=== PATIENT | female | born 1960 | race Caucasian/White ===

== ENCOUNTER 2017-02-15 02:59 | Emergency (ER) | payer BC ==
--- NOTE | 2017-02-15 03:03 | EDM.PDOC ---
ED HPI GENERAL MEDICAL PROBLEM - General Stated Complaint: CHEST PAINS Time Seen by Provider: 02/15/17 03:02 Source of Information: Reports: Patient - History of Present Illness INITIAL COMMENTS - FREE TEXT/NARRATIVE: HISTORY AND PHYSICAL: History of present illness: []Patient presents with chest pain she rates 2 out of 10 since 9:00 this evening , she had went to bed awakening approximately 20 minutes prior to arrival again with right-sided chest pain 2 out of 10 nonradiating no association with arm neck or jaw no associated shortness of breath or diaphoresis breathing is nonlabored she is in no distress whatsoever. Oxygen casually speaks easily. Pain is worsened by deep inspiration as well as cough, she notes that many people at her workplace have cold symptoms at current. Denies chronic illness or disease no hypertension or diabetes denies smoking alcohol or illicit No fever nausea vomiting chills sweats no shortness breath headache dizziness or palpitation no bowel or urine symptoms she denies previous cold symptoms although she does admit to a cough over the last several days which is slight, dry and nonproductive Review of systems: As per history of present illness and below otherwise all systems reviewed and negative. Past medical history: As per history of present illness and as reviewed below otherwise noncontributory. Surgical history: As per history of present illness and as reviewed below otherwise noncontributory. Social history: No reported history of drug or alcohol abuse. Family history: As per history of present illness and as reviewed below otherwise noncontributory. Physical exam: HEENT: Atraumatic, normocephalic, pupils reactive, negative for conjunctival pallor or scleral icterus, mucous membranes moist, throat clear, neck supple, nontender, trachea midline. Lungs: Clear to auscultation, breath sounds equal bilaterally, symmetrical expansion Reproduce tenderness along right sternal border and lower rib margins with palpation Heart: S1S2, regular, negative for clicks, rubs, or JVD. Abdomen: Soft, nondistended, nontender. Negative for masses or hepatosplenomegaly. Negative for costovertebral tenderness. Pelvis: Stable nontender. Genitourinary: Deferred. Rectal: Deferred. Extremities: Atraumatic, negative for cords or calf pain. Neurovascular unremarkable. Neuro: Awake, alert, oriented. Cranial nerves II through XII unremarkable. Cerebellum unremarkable. Motor and sensory unremarkable throughout. Exam nonfocal. Diagnostics: []Lab as below EKG Chest 1 view Therapeutics: []Aspirin held due to history of asthma and less likely/low probability of cardiac cause for pain given clinical presentation [id number] symptomatic therapies Follow-up with primary care in 2 weeks sooner as needed Impression: []Costochondritis Definitive disposition and diagnosis as appropriate pending reevaluation and review of above. Chest Pain Score (Numeric/FACES): 4 - Related Data Allergies Allergy/AdvReac Type Severity Reaction Status Date / Time prednisone Allergy Swelling Verified 02/15/17 03:08 Home Meds: Home Meds Acyclovir 400 mg PO BID 02/15/17 [History] Cholecalciferol (Vitamin D3) [D3 Dots] 1,000 unit PO DAILY 02/15/17 [History] Estrogen,Con/M-Progest Acet [Prempro 0.3 MG-1.5 MG] 1 tab PO DAILY 02/15/17 [ History] Folic Acid 400 mcg PO DAILY 02/15/17 [History] Levothyroxine [Synthroid] 100 mcg PO DAILY 02/15/17 [History] Methadone 10 mg PO QID 02/15/17 [History] Morphine 30 mg RECTAL Q6H PRN 02/15/17 [History] Omeprazole 20 mg PO BIDAC 02/15/17 [History] ED ROS GENERAL - Review of Systems Review Of Systems: ROS reveals no pertinent complaints other than HPI. ED EXAM, GENERAL - Physical Exam Exam: See Below Course - Vital Signs Last Recorded V/S: Last Vital Signs Temp 36.4 C 02/15/17 03:03 Pulse 74 02/15/17 03:19 Resp 18 02/15/17 03:19 BP 127/81 02/15/17 03:19 Pulse Ox 95 02/15/17 03:19 - Orders/Labs/Meds Orders: Active Orders 24 hr Category Date Time Status EKG Documentation Completion [RC] STAT Care 02/15/17 03:01 Active Chest 1V Frontal [CR] Stat Exams 02/15/17 03:01 Taken Labs: Laboratory Tests 02/15/17 02/15/17 02/15/17 Range/Units 03:10 03:10 03:10 WBC 10.24 (4.0-11.0) K/uL RBC 4.83 (4.30-5.90) M/uL Hgb 14.4 (12.0-16.0) g/dL Hct 43.0 (36.0-46.0) % MCV 89.0 (80.0-98.0) fL MCH 29.8 (27.0-32.0) pg MCHC 33.5 (31.0-37.0) g/dL RDW Std Deviation 43.1 (28.0-62.0) fl RDW Coeff of Alesha 13 (11.0-15.0) % Plt Count 238 (150-400) K/uL MPV 8.90 (7.40-12.00) fL Neut % (Auto) 55.1 (48.0-80.0) % Lymph % (Auto) 34.3 (16.0-40.0) % Harris % (Auto) 7.0 (0.0-15.0) % Eos % (Auto) 3.2 (0.0-7.0) % Baso % (Auto) 0.4 (0.0-1.5) % Neut # (Auto) 5.6 (1.4-5.7) K/uL Lymph # (Auto) 3.5 H (0.6-2.4) K/uL Harris # (Auto) 0.7 (0.0-0.8) K/uL Eos # (Auto) 0.3 (0.0-0.7) K/uL Baso # (Auto) 0.0 (0.0-0.1) K/uL Nucleated RBC % 0.0 /100WBC Nucleated RBCs # 0 K/uL INR (0.86-1.11) Sodium 139 (136-146) mmol/L Potassium 4.5 (3.5-5.1) mmol/L Chloride 104 (98-110) mmol/L Carbon Dioxide 27 (21-31) mmol/L BUN 17 (6.0-23.0) mg/dL Creatinine 0.9 (0.6-1.5) mg/dL Est Cr Clr Drug Dosing 60.27 mL/min Estimated GFR (MDRD) > 60.0 ml/min Glucose 83 (60-110) mg/dL Calcium 9.4 (8.8-10.8) mg/dL Total Bilirubin 0.3 (0.1-1.5) mg/dL AST 19 (5-40) IU/L ALT 18 (8-54) IU/L Alkaline Phosphatase 79 (40-150) Troponin I < 0.10 (0.0-0.29) NG/ML Total Protein 7.1 (6.0-8.0) g/dL Albumin 4.1 (3.5-5.0) g/dL Globulin 3.0 (2.0-3.5) g/dL Albumin/Globulin Ratio 1.4 (1.3-2.8) Amylase (10-90) U/L Lipase (7-80) U/L Urine Color Urine Appearance Urine pH (5.0-8.0) Ur Specific [place] (1.001-1.035) Urine Protein (NEGATIVE) mg/dL Urine Glucose (UA) (NEGATIVE) mg/dL Urine Ketones (NEGATIVE) mg/dL Urine Occult Blood (NEGATIVE) Urine Nitrite (NEGATIVE) Urine Bilirubin (NEGATIVE) Urine Urobilinogen (<2.0) EU/dL Ur Leukocyte Esterase (NEGATIVE) Urine RBC (0-2/HPF) Urine WBC (0-5/HPF) Ur Epithelial Cells (NONE-FEW) Urine Bacteria (NEGATIVE) 02/15/17 02/15/17 02/15/17 Range/Units 03:10 03:10 03:25 WBC (4.0-11.0) K/uL RBC (4.30-5.90) M/uL Hgb (12.0-16.0) g/dL Hct (36.0-46.0) % MCV (80.0-98.0) fL MCH (27.0-32.0) pg MCHC (31.0-37.0) g/dL RDW Std Deviation (28.0-62.0) fl RDW Coeff of Alesha (11.0-15.0) % Plt Count (150-400) K/uL MPV (7.40-12.00) fL Neut % (Auto) (48.0-80.0) % Lymph % (Auto) (16.0-40.0) % Harris % (Auto) (0.0-15.0) % Eos % (Auto) (0.0-7.0) % Baso % (Auto) (0.0-1.5) % Neut # (Auto) (1.4-5.7) K/uL Lymph # (Auto) (0.6-2.4) K/uL Harris # (Auto) (0.0-0.8) K/uL Eos # (Auto) (0.0-0.7) K/uL Baso # (Auto) (0.0-0.1) K/uL Nucleated RBC % /100WBC Nucleated RBCs # K/uL INR 1.00 (0.86-1.11) Sodium (136-146) mmol/L Potassium (3.5-5.1) mmol/L Chloride (98-110) mmol/L Carbon Dioxide (21-31) mmol/L BUN (6.0-23.0) mg/dL Creatinine (0.6-1.5) mg/dL Est Cr Clr Drug Dosing mL/min Estimated GFR (MDRD) ml/min Glucose (60-110) mg/dL Calcium (8.8-10.8) mg/dL Total Bilirubin (0.1-1.5) mg/dL AST (5-40) IU/L ALT (8-54) IU/L Alkaline Phosphatase (40-150) Troponin I (0.0-0.29) NG/ML Total Protein (6.0-8.0) g/dL Albumin (3.5-5.0) g/dL Globulin (2.0-3.5) g/dL Albumin/Globulin Ratio (1.3-2.8) Amylase 48 (10-90) U/L Lipase 12 (7-80) U/L Urine Color YELLOW Urine Appearance CLEAR Urine pH 5.5 (5.0-8.0) Ur Specific [place] 1.025 (1.001-1.035) Urine Protein NEGATIVE (NEGATIVE) mg/dL Urine Glucose (UA) NEGATIVE (NEGATIVE) mg/dL Urine Ketones NEGATIVE (NEGATIVE) mg/dL Urine Occult Blood TRACE-INTACT (NEGATIVE) Urine Nitrite NEGATIVE (NEGATIVE) Urine Bilirubin NEGATIVE (NEGATIVE) Urine Urobilinogen 0.2 (<2.0) EU/dL Ur Leukocyte Esterase NEGATIVE (NEGATIVE) Urine RBC 0-2 (0-2/HPF) Urine WBC NONE SEEN (0-5/HPF) Ur Epithelial Cells FEW (NONE-FEW) Urine Bacteria FEW (NEGATIVE) Departure - Departure Time of Disposition: 03:48 Disposition: Home, Self-Care 01 Condition: Good Clinical Impression: Costochondritis - Discharge Information Referrals: PCP,None [Primary Care Provider] - Additional Instructions: Ibuprofen 400 mg 3 times daily 7-10 days Tylenol may be be used in place of ibuprofen at 650 mg every 6 hours 10 days Return if symptoms persist or worsen or new concerning symptoms develop [id number] symptomatic therapy as discussed Follow-up with primary care in 2 weeks sooner as needed The following information is given to patients seen in the emergency department who are being discharged to home. This information is to outline your options for follow-up care. We provide all patients seen in our emergency department with a follow-up referral. The need for follow-up, as well as the timing and circumstances, are variable depending upon the specifics of your emergency department visit. If you don't have a primary care physician on staff, we will provide you with a referral. We always advise you to contact your personal physician following an emergency department visit to inform them of the circumstance of the visit and for follow-up with them and/or the need for any referrals to a consulting specialist. The emergency department will also refer you to a specialist when appropriate. This referral assures that you have the opportunity for follow-up care with a specialist. All of these measure are taken in an effort to provide you with optimal care, which includes your follow-up. Under all circumstances we always encourage you to contact your private physician who remains a resource for coordinating your care. When calling for follow-up care, please make the office aware that this follow-up is from your recent emergency room visit. If for any reason you are refused follow-up, please contact the [facility] emergency department at and asked to speak to the emergency department charge nurse. - My Orders Last 24 Hours: My Active Orders 02/15/17 03:01 EKG Documentation Completion [RC] STAT Chest 1V Frontal [CR] Stat - Assessment/Plan Last 24 Hours: My Active Orders 02/15/17 03:01 EKG Documentation Completion [RC] STAT Chest 1V Frontal [CR] Stat
[2017-02-15 03:32] LABS: CHLORIDE,CL 104 mmol/L (98-110); SODIUM,NA 139 mmol/L (136-146)
[2017-02-15 04:06] VITALS: BP 123/74
--- NOTE | 2017-02-15 10:33 | CR ---
EXAM DATE: 02/15/17 PATIENT'S AGE: 56 Patient: EHSAN ALFARO Facility: [place], [place] Site . Site : [id number] Study: XRay Chest [id number]/26/2017 3:23:09 AM Ordering Physician: Doctor Gutiérrez Final Report: INDICATION: CHEST PAIN TECHNIQUE: Chest 1 view COMPARISON: None FINDINGS: Cardiovascular and mediastinum: Heart size and vasculature are normal in caliber and appearance. Mediastinum is within normal limits. Lungs and pleural space: No focal consolidation. No sign of pleural effusion. No pneumothorax. Bones and soft tissues: No significant findings. IMPRESSION: No acute cardiopulmonary disease. Dictated by J Luis Martin MD @ 02/15/2017 3:28:41 AM Dictated by: J Luis Martin MD @ 02/15/2017 03:28:48 (Electronic Signature) Report Signed by Proxy. [email or web address]
== END 2017-02-15 04:00 | disposition home or self-care (01) ==
LOC: MW.ED 02:59
DX: M94.0 Chondrocostal junction syndrome [Tietze] (principal); Z79.899 Other long term (current) drug therapy; Z88.8 Allergy status to other drugs, medicaments and biological substances
CPT/HCPCS: 71010; 71010-26; 80053; 81001; 82150; 83690; 84484; 85025; 85610; 93005; 99283; 99285-25

== ENCOUNTER 2019-12-30 20:47 | Observation (INO) | payer BC ==
[2019-12-30] MEDS ORDERED: Sodium Chloride 0.9% 1,000 ML IV ONE (21:13)
[2019-12-30] MEDS ORDERED: Ondansetron 4 MG/2 ML SDV IVPUSH ONE ×2 (21:13→23:05)
[2019-12-30] MEDS ORDERED: Morphine 4 MG/ML Syringe IVPUSH ONE ×3 (21:13→23:05)
--- NOTE | 2019-12-30 21:17 | EDM.PDOC ---
ED HPI GENERAL MEDICAL PROBLEM - General Chief Complaint: Abdominal Pain Stated Complaint: UPPER ABDOMINAL PAIN Time Seen by Provider: 12/30/19 20:52 Source of Information: Reports: Patient History Limitations: Reports: No Limitations - History of Present Illness INITIAL COMMENTS - FREE TEXT/NARRATIVE: 59F presents for RUQP since roughly 2PM today. Ate urdu fries prior to pain. Pain started suddenly and is constant. Radiates to back. Associated with nausea but no vomiting. No fevers. No urinary symptoms. No PSHx other than tubal ligation. Compazine OIL FIELD TESTER w/ minimal relief. No h/o similar mid upper and R abd pain Pain Score (Numeric/FACES): 7 - Related Data Allergies Allergy/AdvReac Type Severity Reaction Status Date / Time cefuroxime [From Ceftin] Allergy Airway Verified 12/30/19 21:01 Tightness cephalexin [From Keflex] Allergy Airway Verified 12/30/19 21:01 Tightness prednisone Allergy Swelling Verified 02/15/17 03:08 Home Meds: Home Meds Acyclovir 400 mg PO BID 02/15/17 [History] Cholecalciferol (Vitamin D3) [D3 Dots] 1,000 unit PO DAILY 02/15/17 [History] Folic Acid 400 mcg PO DAILY 02/15/17 [History] Levothyroxine [Synthroid] 100 mcg PO DAILY 02/15/17 [History] Morphine 30 mg RECTAL Q6H PRN 02/15/17 [History] Omeprazole 20 mg PO BIDAC 02/15/17 [History] Past Medical History HEENT History: Reports: None Respiratory History: Reports: Asthma Genitourinary History: Reports: None [employer] History: Reports: Ectopic Musculoskeletal History: Reports: None Neurological History: Reports: Headaches, Chronic Endocrine/Metabolic History: Reports: Hypothyroidism - Infectious Disease History Infectious Disease History: Reports: Chicken Pox - Past Surgical History HEENT Surgical History: Reports: Tonsillectomy Respiratory Surgical History: Reports: None Female Surgical History: Reports: Tubal Ligation Musculoskeletal Surgical History: Reports: Carpal Tunnel Other Musculoskeletal Surgeries/Procedures:: multiple back surgeries Social & Family History - Family History Family Medical History: Noncontributory - Tobacco Use Smoking Status *Q: Former Smoker Used Tobacco, but Quit: Yes Month/Year Tobacco Last Used: 09/2019 - Caffeine Use Caffeine Use: Reports: Coffee Caffeine Use Comment: 1cup/day - Recreational Drug Use Recreational Drug Use: No ED ROS GENERAL - Review of Systems Review Of Systems: Comprehensive ROS is negative, except as noted in HPI. ED EXAM, GI/ABD - Physical Exam Exam: See Below Exam Limited By: No Limitations General Appearance: Alert, WD/WN, No Apparent Distress Head: Atraumatic, Normocephalic Respiratory/Chest: No Respiratory Distress, Lungs Clear, Normal Breath Sounds, No Accessory Muscle Use Cardiovascular: Normal Peripheral Pulses, Regular Rate, Rhythm GI/Abdominal Exam: Soft, No Distention, Other (RUQ TTP) Extremities: Normal Inspection Neurological: Alert, Oriented Psychiatric: Normal Affect, Normal Mood Skin Exam: Warm, Dry Course - Vital Signs Last Recorded V/S: Last Vital Signs Temp 96.3 F L 12/30/19 20:56 Pulse 64 12/30/19 20:56 Resp 18 12/30/19 20:56 BP 204/92 H 12/30/19 20:56 Pulse Ox 96 12/30/19 20:56 - Orders/Labs/Meds Orders: Active Orders 24 hr Category Date Time Status EKG 12 Lead [EKG Documentation Completion] [RC] STAT Care 12/31/19 00:32 Active Dicyclomine [Bentyl] Med 12/31/19 00:32 Once 10 mg PO ONETIME ONE Ketorolac [Toradol] Med 12/31/19 00:32 Once 15 mg IVPUSH ONETIME ONE Sucralfate [Carafate] Med 12/31/19 23:43 Once 1 gm PO ONETIME ONE Medication Orders Sucralfate (Carafate) 1 gm PO ONETIME ONE Stop: 12/31/19 23:44 Labs: Laboratory Tests 12/30/19 12/30/19 12/30/19 Range/Units 21:30 21:30 23:00 WBC 10.37 (4.0-11.0) K/uL RBC 4.90 (4.30-5.90) M/uL Hgb 14.2 (12.0-16.0) g/dL Hct 41.5 (36.0-46.0) % MCV 84.7 (80.0-98.0) fL MCH 29.0 (27.0-32.0) pg MCHC 34.2 (31.0-37.0) g/dL RDW Std Deviation 37.2 (28.0-62.0) fl RDW Coeff of Alesha 12 (11.0-15.0) % Plt Count 281 (150-400) K/uL MPV 8.60 (7.40-12.00) fL Neut % (Auto) 59.2 (48.0-80.0) % Lymph % (Auto) 31.9 (16.0-40.0) % [place] % (Auto) 6.1 (0.0-15.0) % Eos % (Auto) 2.1 (0.0-7.0) % Baso % (Auto) 0.7 (0.0-1.5) % Neut # (Auto) 6.1 H (1.4-5.7) K/uL Lymph # (Auto) 3.3 H (0.6-2.4) K/uL [place] # (Auto) 0.6 (0.0-0.8) K/uL Eos # (Auto) 0.2 (0.0-0.7) K/uL Baso # (Auto) 0.1 (0.0-0.1) K/uL Sodium 140 (136-145) mmol/L Potassium 4.0 (3.5-5.1) mmol/L Chloride 102 (98-107) mmol/L Carbon Dioxide 31.0 (21.0-32.0) mmol/L BUN 9 (7.0-18.0) mg/dL Creatinine 0.9 (0.6-1.0) mg/dL Est Cr Clr Drug Dosing 55.68 mL/min Estimated GFR (MDRD) > 60.0 ml/min Glucose 95 (74-106) mg/dL Calcium 8.4 L (8.5-10.1) mg/dL Magnesium 2.0 (1.8-2.4) mg/dL Total Bilirubin 0.3 (0.2-1.0) mg/dL AST 15 (15-37) IU/L ALT 21 (14-63) IU/L Alkaline Phosphatase 102 (46-116) U/L Troponin I < 0.050 (0.000-0.056) ng/mL Total Protein 7.4 (6.4-8.2) g/dL Albumin 4.2 (3.4-5.0) g/dL Globulin 3.2 (2.6-4.0) g/dL Albumin/Globulin Ratio 1.3 (0.9-1.6) Lipase 46 L (73-393) U/L Urine Color YELLOW Urine Appearance SLT CLOUDY Urine pH 5.5 (5.0-8.0) Ur Specific [place] 1.025 (1.001-1.035) Urine Protein NEGATIVE (NEGATIVE) mg/dL Urine Glucose (UA) NEGATIVE (NEGATIVE) mg/dL Urine Ketones NEGATIVE (NEGATIVE) mg/dL Urine Occult Blood MODERATE H (NEGATIVE) Urine Nitrite NEGATIVE (NEGATIVE) Urine Bilirubin NEGATIVE (NEGATIVE) Urine Urobilinogen 0.2 (<2.0) EU/dL Ur Leukocyte Esterase NEGATIVE (NEGATIVE) Urine RBC 2-5 (0-2/HPF) Urine WBC 0-1 (0-5/HPF) Ur Epithelial Cells RARE (NONE-FEW) Urine Bacteria RARE (NEGATIVE) Meds: Medications Generic Name Dose Route Start Last Admin Trade Name Freq PRN Reason Stop Dose Admin Sucralfate 1 gm 12/31/19 23:43 Carafate PO 12/31/19 23:44 ONETIME ONE Discontinued Medications Generic Name Dose Route Start Last Admin Trade Name Freq PRN Reason Stop Dose Admin Al Hydroxide/Mg Hydroxide 15 0 ml 12/30/19 23:43 12/31/19 00:11 ml/ Lidocaine HCl 5 ml PO 12/30/19 23:44 1 each ONETIME ONE Administration Sodium Chloride 1,000 mls @ 999 mls/hr 12/30/19 21:13 12/30/19 21:44 Normal Saline IV 12/30/19 22:13 999 mls/hr .Bolus ONE Administration Metoclopramide HCl 10 mg 12/30/19 22:37 12/30/19 22:54 Reglan IVPUSH 12/30/19 22:38 10 mg ONETIME ONE Administration Morphine Sulfate 4 mg 12/30/19 21:13 12/30/19 21:44 Morphine IVPUSH 12/30/19 21:14 4 mg ONETIME ONE Administration Morphine Sulfate 4 mg 12/30/19 22:37 12/30/19 22:54 Morphine IVPUSH 12/30/19 22:38 4 mg ONETIME ONE Administration Morphine Sulfate 4 mg 12/30/19 23:05 12/30/19 23:20 Morphine IVPUSH 12/30/19 23:06 4 mg ONETIME ONE Administration Ondansetron HCl 4 mg 12/30/19 21:13 12/30/19 21:45 Zofran IVPUSH 12/30/19 21:14 4 mg ONETIME ONE Administration Ondansetron HCl 4 mg 12/30/19 23:05 12/30/19 23:20 Zofran IVPUSH 12/30/19 23:06 4 mg ONETIME ONE Administration - Re-Assessments/Exams Free Text/Narrative Re-Assessment/Exam: 12/30/19 21:16 Will get labs, CT imaging, and treat symptomatically while working up Free Text/Narrative Re-Assessment/Exam: 12/31/19 00:32 Pain difficult to control. 3x morphine 4mg without relief. GI cocktail, carafate not helpful. CT unremarkable. Bedside POCUS w/ some biliary sludge but no gallstones identified, CBD measuring 4mm. Spoke with Dr. Salguero who agrees to admit to med/surg obs pending EKG Departure - Departure Time of Disposition: 00:33 Disposition: Refer to Observation Condition: Good, Fair Clinical Impression: Abdominal pain Qualifiers: Abdominal location: right upper quadrant Qualified Code(s): R10.11 - Right upper quadrant pain - Discharge Information Referrals: PCP,Not In Area [Primary Care Provider] - Forms: ED Department Discharge Sepsis Event Note (ED) - Evaluation Sepsis Screening Result: No Definite Risk - Focused Exam Vital Signs: Vital Signs Temp Pulse Resp BP Pulse Ox 12/30/19 20:56 96.3 F L 64 18 204/92 H 96 - My Orders Last 24 Hours: My Active Orders 12/31/19 00:32 EKG 12 Lead [EKG Documentation Completion] [RC] STAT Dicyclomine [Bentyl] 10 mg PO ONETIME ONE Ketorolac [Toradol] 15 mg IVPUSH ONETIME ONE 12/31/19 23:43 Sucralfate [Carafate] 1 gm PO ONETIME ONE - Assessment/Plan Last 24 Hours: My Active Orders 12/31/19 00:32 EKG 12 Lead [EKG Documentation Completion] [RC] STAT Dicyclomine [Bentyl] 10 mg PO ONETIME ONE Ketorolac [Toradol] 15 mg IVPUSH ONETIME ONE 12/31/19 23:43 Sucralfate [Carafate] 1 gm PO ONETIME ONE
[2019-12-30 22:04] LABS: BLOOD UREA NITROGEN,BUN 9 mg/dL (7.0-18.0); CHLORIDE,CL 102 mmol/L (98-107); GLUCOSE RANDOM 95 mg/dL (74-106); LIPASE 46 U/L (73-393); SODIUM,NA 140 mmol/L (136-145)
[2019-12-30] MEDS ORDERED: Metoclopramide 10 MG/2 ML SDV IVPUSH ONE (22:37)
--- NOTE | 2019-12-30 23:21 | CT ---
INDICATION: Right upper quadrant pain. COMPARISON: None available TECHNIQUE: CT examination of the abdomen and pelvis was performed with the uneventful intravenous administration of 100 cc of Isovue 370 while 3 mm thick axial sections were obtained from the lung bases through the pubic symphysis. Oral contrast was not administered. Please note that all CT scans at this facility use dose modulation, iterative reconstruction, and/or weight-based dosing when appropriate to reduce radiation dose to as low as reasonably achievable. FINDINGS: In the abdomen, the liver, spleen, pancreas, and adrenals are normal in appearance. There is a 7 millimeter cyst in the upper pole of the left kidney. The kidneys are otherwise normal in appearance. The gallbladder is moderately distended but is otherwise normal in appearance. The common bile duct is top normal in caliber at 6 millimeters with no sign of choledocholithiasis. The abdominal aorta is normal in caliber with no sign of dilatation. There is no sign of retroperitoneal mass or adenopathy. The stomach, loops of small bowel, and colon in the abdomen are normal in appearance. There is a small fat containing periumbilical hernia. In the pelvis, the appendix is nonvisualized, but there is no sign of an inflammatory process in the area of the appendix. The loops of small bowel and colon in the pelvis are normal in appearance. The uterus and adnexal regions are normal in appearance. The urinary bladder is normal in appearance. There is no sign of pelvic or inguinal mass or adenopathy. There is no sign of free air or free fluid in the abdomen or pelvis. The lung bases are clear. There is mild scoliosis of the lumbar spine convex towards the left. There is mild disc degenerative disease at L4-5 and L5-S1. IMPRESSION: CT of the abdomen shows moderate dilatation of the gallbladder with no additional abnormalities. Common bile duct top normal in caliber at 6 millimeters. Nothing seen in the right upper quadrant to suggest a cause for right upper quadrant pain. Normal CT of the pelvis with contrast. Please note that all CT scans at this facility use dose modulation, iterative reconstruction, and/or weight-based dosing when appropriate to reduce radiation dose to as low as reasonably achievable. Dictated by Edilberto Pierre MD @ Dec 30 2019 11:08PM Signed by Dr. Edilberto Pierre @ Dec 30 2019 11:19PM
[2019-12-30] MEDS ORDERED: Alum Hydrox/Mag Hydrox/Simeth 15 ML, Lidocaine 2% 5 ML PO ONE ×2 (23:43)
[2019-12-31] MEDS ORDERED: Dicyclomine 10 MG Cap PO ONE (00:32)
[2019-12-31] MEDS ORDERED: Ketorolac 30 MG/ML SDV IVPUSH ONE ×2 (00:32→14:49)
[2019-12-31] MEDS ORDERED: Sucralfate Suspension 1 GM/10 ML Cup ONE (00:38)
[2019-12-31] MEDS ORDERED: HYDROmorphone 1 MG/ML Syringe IVPUSH PRN (01:35)
[2019-12-31] MEDS ORDERED: Ondansetron 4 MG/2 ML SDV IVPUSH PRN (01:36)
[2019-12-31] MEDS ORDERED: Albuterol/Ipratropium 3.0-0.5 MG/3 ML Neb Soln NEB PRN (01:39)
[2019-12-31] MEDS ORDERED: Lactated Ringers 1,000 ML IV SCH (01:45)
[2019-12-31] MEDS ORDERED: Labetalol 100 MG/20 ML MDV IVPUSH PRN (02:18)
[2019-12-31] MEDS: Pantoprazole 40 MG in Sodium Chloride 0.9% 10 ML IV SCH ×4 (02:46→20:29)
[2019-12-31 06:21] LABS: CARBON DIOXIDE,CO2 27.4 mmol/L (21.0-32.0)
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
--- NOTE | 2019-12-31 09:14 | US ---
Limited abdominal ultrasound: Multiple real-time images were obtained of the upper right abdomen. Comparison: No prior abdominal imaging is available. Gallbladder contains no shadowing gallstones. No gallbladder wall thickening or biliary duct dilatation is seen. Right kidney shows no hydronephrosis or mass. Right kidney length is 9.2 cm. Liver contains no focal parenchymal abnormality. Visualized portions of the pancreas shows no discrete abnormality. Impression: 1. No abnormality is identified on right upper quadrant abdominal ultrasound exam. Diagnostic code #1 This report was dictated in MDT
[2019-12-31] MEDS: Piperacillin/Tazobactam 4.5 GM in Sodium Chloride 0.9% 100 ML IV SCH ×3 (10:22→20:46)
[2019-12-31] MEDS: HYDROmorphone 1 MG/ML Syringe IVPUSH PRN ×2 (10:24→13:58)
--- NOTE | 2019-12-31 11:13 | PCM.CONS ---
H&P History of Present Illness - General Date of Service: 12/31/19 Admit Problem/Dx: Admission Diagnosis/Problem Admission Diagnosis/Problem Abdominal pain Source of Information: Patient History Limitations: Reports: No Limitations - History of Present Illness Initial Comments - Free Text/Narative: Patient is a 59-year-old female admitted via the emergency room last night with right upper quadrant pain that was refractory. Patient states it started about 2 in the afternoon after eating some [place] fries. She had done these in an air fryer. No prior history of greasy food intolerance. No documented history of cholelithiasis. Workup in the emergency room didn't include a CT scan of the abdomen that showed a distended gallbladder with no gallbladder wall thickening or pericholecystic fluid or edema. A gallbladder ultrasound done today again shows a distended gallbladder without cholelithiasis. Family history is positive for cholelithiasis in her mother and sister. Patient denies any change in color of stool or urine. Symptom Onset Date: 12/30/19 Location: Reports: Abdomen Quality: Reports: Pressure, Throbbing Severity: Moderate Improves with: Reports: Rest Worsens with: Reports: Movement Associated Symptoms: Reports: Nausea/Vomiting. Denies: Confusion, Chest Pain, Fever/Chills, Shortness of Breath mid upper and R abd pain Pain Score (Numeric/FACES): 7 - Related Data Allergies/Adverse Reactions: Allergies Allergy/AdvReac Type Severity Reaction Status Date / Time cefuroxime [From Ceftin] Allergy Airway Verified 12/31/19 01:55 Tightness cephalexin [From Keflex] Allergy Airway Verified 12/31/19 01:55 Tightness prednisone Allergy Swelling Verified 12/31/19 01:55 Home Medications: Home Meds Acyclovir 400 mg PO BID 02/15/17 [History] Cholecalciferol (Vitamin D3) [D3 Dots] 1,000 unit PO DAILY 02/15/17 [History] Folic Acid 400 mcg PO DAILY 02/15/17 [History] Levothyroxine [Synthroid] 100 mcg PO DAILY 02/15/17 [History] Morphine 30 mg RECTAL Q6H PRN 02/15/17 [History] Omeprazole 20 mg PO BIDAC 02/15/17 [History] Past Medical History HEENT History: Reports: None Respiratory History: Reports: Asthma Genitourinary History: Reports: None [employer] History: Reports: Ectopic Musculoskeletal History: Reports: None Neurological History: Reports: Headaches, Chronic Endocrine/Metabolic History: Reports: Hypothyroidism - Infectious Disease History Infectious Disease History: Reports: Chicken Pox - Past Surgical History HEENT Surgical History: Reports: Tonsillectomy Respiratory Surgical History: Reports: None Female Surgical History: Reports: Tubal Ligation Musculoskeletal Surgical History: Reports: Carpal Tunnel Other Musculoskeletal Surgeries/Procedures:: multiple back surgeries Social & Family History - Family History Family Medical History: Noncontributory - Tobacco Use Smoking Status *Q: Former Smoker Used Tobacco, but Quit: Yes Month/Year Tobacco Last Used: 09/2019 - Caffeine Use Caffeine Use: Reports: Coffee Caffeine Use Comment: 1cup/day - Recreational Drug Use Recreational Drug Use: No H&P Review of Systems - Review of Systems: Review Of Systems: See Below General: Denies: Fever, Chills, Malaise, Weakness, Fatigue HEENT: Reports: No Symptoms Pulmonary: Denies: Shortness of Breath, Wheezing Cardiovascular: Denies: Chest Pain, Palpitations, Dyspnea on Exertion, Lightheadedness Gastrointestinal: Reports: Abdominal Pain, Decreased Appetite, Nausea, Vomiting. Denies: Anorexia, Black Stool, Bloody Stool, Constipation, Diarrhea, Hematemesis, Hematochezia, Melena Genitourinary: Denies: Dysuria, Frequency, Burning, Pain, Urgency Musculoskeletal: Reports: No Symptoms Skin: Denies: Cyanosis, Jaundice, Mottled, Pallor, Diaphoresis Psychiatric: Denies: Confusion, Depression, Mood Lability, Anxiety Neurological: Reports: No Symptoms Hematologic/Lymphatic: Reports: No Symptoms Immunologic: Reports: No Symptoms Exam - Exam Exam: See Below - Vital Signs Vital Signs: Last Vital Signs Temp 99.8 F 12/31/19 08:17 Pulse 87 12/31/19 08:17 Resp 16 12/31/19 08:17 BP 181/84 H 12/31/19 08:17 Pulse Ox 96 12/31/19 08:17 Weight: 150 lb 6.4 oz - Exam Quality Assessment: DVT Prophylaxis. No: Urinary Catheter, Skin Breakdown General: Alert, Oriented, Cooperative, Moderate Distress HEENT: Conjunctiva Clear, Pupils Equal, Pupils Reactive. No: Scleral Icterus Neck: Supple, Trachea Midline. No: Carotid Bruit Lungs: Clear to Auscultation, Normal Respiratory Effort. No: Wheezing Cardiovascular: Regular Rate, Regular Rhythm, Normal S1, Normal S2. No: Tachycardia, Systolic Murmur GI/Abdominal Exam: Normal Bowel Sounds, Soft, No Distention, Tender (RUQ). No: Guarding, Rigid, Rebound, Hepatomegaly (Female) Exam: Deferred Rectal (Female) Exam: Deferred Back Exam: Normal Inspection, Full Range of Motion Extremities: Normal Inspection, Non-Tender Peripheral Pulses: 4+: Posterior Tibial (L), Posterior Tibial (R), Dorsalis Pedis (L), Dorsalis Pedis (R) Skin: Warm, Dry, Intact Neurological: Cranial Nerves Intact Neuro Extensive - Mental Status: Alert, Oriented x3, Normal Mood/Affect, Normal Cognition Psychiatric: Alert, Normal Affect, Normal Mood - Patient Data Lab Results Last 24 hrs: Laboratory Results - last 24 hr 12/30/19 12/30/19 12/30/19 Range/Units 21:30 21:30 23:00 WBC 10.37 (4.0-11.0) K/uL RBC 4.90 (4.30-5.90) M/uL Hgb 14.2 (12.0-16.0) g/dL Hct 41.5 (36.0-46.0) % MCV 84.7 (80.0-98.0) fL MCH 29.0 (27.0-32.0) pg MCHC 34.2 (31.0-37.0) g/dL RDW Std Deviation 37.2 (28.0-62.0) fl RDW Coeff of Alesha 12 (11.0-15.0) % Plt Count 281 (150-400) K/uL MPV 8.60 (7.40-12.00) fL Neut % (Auto) 59.2 (48.0-80.0) % Lymph % (Auto) 31.9 (16.0-40.0) % [place] % (Auto) 6.1 (0.0-15.0) % Eos % (Auto) 2.1 (0.0-7.0) % Baso % (Auto) 0.7 (0.0-1.5) % Neut # (Auto) 6.1 H (1.4-5.7) K/uL Lymph # (Auto) 3.3 H (0.6-2.4) K/uL [place] # (Auto) 0.6 (0.0-0.8) K/uL Eos # (Auto) 0.2 (0.0-0.7) K/uL Baso # (Auto) 0.1 (0.0-0.1) K/uL Sodium 140 (136-145) mmol/L Potassium 4.0 (3.5-5.1) mmol/L Chloride 102 (98-107) mmol/L Carbon Dioxide 31.0 (21.0-32.0) mmol/L BUN 9 (7.0-18.0) mg/dL Creatinine 0.9 (0.6-1.0) mg/dL Est Cr Clr Drug Dosing 55.68 mL/min Estimated GFR (MDRD) > 60.0 ml/min Glucose 95 (74-106) mg/dL Calcium 8.4 L (8.5-10.1) mg/dL Phosphorus (2.6-4.7) mg/dL Magnesium 2.0 (1.8-2.4) mg/dL Total Bilirubin 0.3 (0.2-1.0) mg/dL AST 15 (15-37) IU/L ALT 21 (14-63) IU/L Alkaline Phosphatase 102 (46-116) U/L Troponin I < 0.050 (0.000-0.056) ng/mL Total Protein 7.4 (6.4-8.2) g/dL Albumin 4.2 (3.4-5.0) g/dL Globulin 3.2 (2.6-4.0) g/dL Albumin/Globulin Ratio 1.3 (0.9-1.6) Lipase 46 L (73-393) U/L Urine Color YELLOW Urine Appearance SLT CLOUDY Urine pH 5.5 (5.0-8.0) Ur Specific [place] 1.025 (1.001-1.035) Urine Protein NEGATIVE (NEGATIVE) mg/dL Urine Glucose (UA) NEGATIVE (NEGATIVE) mg/dL Urine Ketones NEGATIVE (NEGATIVE) mg/dL Urine Occult Blood MODERATE H (NEGATIVE) Urine Nitrite NEGATIVE (NEGATIVE) Urine Bilirubin NEGATIVE (NEGATIVE) Urine Urobilinogen 0.2 (<2.0) EU/dL Ur Leukocyte Esterase NEGATIVE (NEGATIVE) Urine RBC 2-5 (0-2/HPF) Urine WBC 0-1 (0-5/HPF) Ur Epithelial Cells RARE (NONE-FEW) Urine Bacteria RARE (NEGATIVE) COVID-19 (LIZZETH) (NEGATIVE) 12/31/19 12/31/19 12/31/19 Range/Units 00:50 05:45 05:45 WBC 17.05 H (4.0-11.0) K/uL RBC 4.48 (4.30-5.90) M/uL Hgb 13.0 (12.0-16.0) g/dL Hct 38.1 (36.0-46.0) % MCV 85.0 (80.0-98.0) fL MCH 29.0 (27.0-32.0) pg MCHC 34.1 (31.0-37.0) g/dL RDW Std Deviation 37.4 (28.0-62.0) fl RDW Coeff of Alesha 12 (11.0-15.0) % Plt Count 277 (150-400) K/uL MPV 8.80 (7.40-12.00) fL Neut % (Auto) 84.0 H (48.0-80.0) % Lymph % (Auto) 9.8 L (16.0-40.0) % [place] % (Auto) 5.9 (0.0-15.0) % Eos % (Auto) 0.1 (0.0-7.0) % Baso % (Auto) 0.2 (0.0-1.5) % Neut # (Auto) 14.3 H (1.4-5.7) K/uL Lymph # (Auto) 1.7 (0.6-2.4) K/uL [place] # (Auto) 1.0 H (0.0-0.8) K/uL Eos # (Auto) 0.0 (0.0-0.7) K/uL Baso # (Auto) 0.0 (0.0-0.1) K/uL Sodium 138 (136-145) mmol/L Potassium 4.0 (3.5-5.1) mmol/L Chloride 104 (98-107) mmol/L Carbon Dioxide 27.4 (21.0-32.0) mmol/L BUN 8 (7.0-18.0) mg/dL Creatinine 1.0 (0.6-1.0) mg/dL Est Cr Clr Drug Dosing 50.11 mL/min Estimated GFR (MDRD) 56.7 ml/min Glucose 106 (74-106) mg/dL Calcium 8.2 L (8.5-10.1) mg/dL Phosphorus 3.5 (2.6-4.7) mg/dL Magnesium 1.9 (1.8-2.4) mg/dL Total Bilirubin 0.6 (0.2-1.0) mg/dL AST 19 (15-37) IU/L ALT 24 (14-63) IU/L Alkaline Phosphatase 86 (46-116) U/L Troponin I (0.000-0.056) ng/mL Total Protein 6.5 (6.4-8.2) g/dL Albumin 3.5 (3.4-5.0) g/dL Globulin 3.0 (2.6-4.0) g/dL Albumin/Globulin Ratio 1.2 (0.9-1.6) Lipase (73-393) U/L Urine Color Urine Appearance Urine pH (5.0-8.0) Ur Specific [place] (1.001-1.035) Urine Protein (NEGATIVE) mg/dL Urine Glucose (UA) (NEGATIVE) mg/dL Urine Ketones (NEGATIVE) mg/dL Urine Occult Blood (NEGATIVE) Urine Nitrite (NEGATIVE) Urine Bilirubin (NEGATIVE) Urine Urobilinogen (<2.0) EU/dL Ur Leukocyte Esterase (NEGATIVE) Urine RBC (0-2/HPF) Urine WBC (0-5/HPF) Ur Epithelial Cells (NONE-FEW) Urine Bacteria (NEGATIVE) COVID-19 (LIZZETH) NEGATIVE (NEGATIVE) Result Diagrams: 12/31/19 05:45 12/31/19 05:45 Imaging Impressions Last 24 hrs: Ultrasound and CT scan have been personally reviewed, along with the reports. She certainly has distention of her gallbladder, although I do not see any evidence of pericholecystic edema or fluid. The gallbladder wall measures 0.19 mm. No stones or sludge are identified. Sepsis Event Note - Evaluation Sepsis Screening Result: No Definite Risk - Focused Exam Vital Signs: Vital Signs Temp Pulse Resp BP Pulse Ox Pulse Ox 12/31/19 08:17 99.8 F 87 16 181/84 H 96 12/31/19 05:57 95 0810/20 03:07 98.5 F 75 159/85 H 95 Date Exam was Performed: 12/31/19 Time Exam was Performed: 11:08 Consult PN Assessment/Plan Procedures: Procedures ASSAY OF AMYLASE (02/15/17) ASSAY OF LIPASE (02/15/17) ASSAY OF TROPONIN QUANT (02/15/17) CHEST X-RAY 1 VIEW FRONTAL (02/15/17) COMPLETE CBC W/AUTO DIFF WBC (02/15/17) COMPREHEN METABOLIC PANEL (02/15/17) ELECTROCARDIOGRAM TRACING (02/15/17) EMERGENCY DEPT VISIT (02/15/17) PROTHROMBIN TIME (02/15/17) URINALYSIS AUTO W/SCOPE (02/15/17) (1) Right upper quadrant abdominal pain SNOMED Code(s): 099953095 Code(s): R10.11 - RIGHT UPPER QUADRANT PAIN Current Visit: Yes (2) Biliary tract distention SNOMED Code(s): 322479649 Code(s): K83.8 - OTHER SPECIFIED DISEASES OF BILIARY TRACT Current Visit: Yes Comment: Her gallbladder is distended without signs of gallbladder wall thickening or pericholecystic edema or fluid. (3) Abdominal pain SNOMED Code(s): 76075086 Code(s): R10.9 - UNSPECIFIED ABDOMINAL PAIN Current Visit: Yes Qualifiers: Abdominal location: right upper quadrant Qualified Code(s): R10.11 - Right upper quadrant pain Problem List Initiated/Reviewed/Updated: Yes Plan: Recommend starting parenteral antibiotics. May have ice chips. Consider repeating laboratory studies in the morning.
[2019-12-31] MEDS: Lactated Ringers 1,000 ML IV SCH ×2 (11:53→19:31)
[2019-12-31] MEDS: Morphine 15 MG Tab PRN ×2 (11:57→12:47)
[2019-12-31] MEDS ORDERED: HYDROmorphone 1 MG/ML Syringe IVPUSH ONE (14:41)
[2019-12-31] MEDS ORDERED: Morphine 4 MG/ML Syringe IVPUSH ONE (15:13)
[2019-12-31] MEDS: Morphine Sulfate in 0.9 % NaCl 50 MG/50 ML PCA Bag IV SCH ×2 (16:35→23:10)
[2019-12-31] MEDS ORDERED: Acetaminophen 325 MG Tab PO PRN (20:07)
[2019-12-31] MEDS ORDERED: Lactated Ringers 1,000 ML IV ONE ×2 (20:09→21:30)
[2019-12-31] MEDS: Ketorolac 15 MG/ML SDV IVPUSH PRN (20:39)
[2019-12-31] MEDS ORDERED: Sucralfate Suspension 1 GM/10 ML Cup PO ONE (23:43)
[2020-01-01] MEDS: Piperacillin/Tazobactam 4.5 GM in Sodium Chloride 0.9% 100 ML IV SCH ×2 (03:19→09:08)
[2020-01-01] MEDS: Ketorolac 15 MG/ML SDV IVPUSH PRN ×2 (03:20→09:33)
[2020-01-01] MEDS: Lactated Ringers 1,000 ML IV SCH (03:53)
[2020-01-01 06:05] LABS: BLOOD UREA NITROGEN,BUN 8 mg/dL (7.0-18.0); CARBON DIOXIDE,CO2 26.6 mmol/L (21.0-32.0); CHLORIDE,CL 103 mmol/L (98-107); GLUCOSE RANDOM 119 mg/dL (74-106); POTASSIUM,K 3.7 mmol/L (3.5-5.1); SODIUM,NA 136 mmol/L (136-145)
[2020-01-01] MEDS: Pantoprazole 40 MG in Sodium Chloride 0.9% 10 ML IV SCH (08:29)
[2020-01-01] MEDS ORDERED: Lactated Ringers 1,000 ML IV SCH (08:30)
--- NOTE | 2020-01-01 08:40 | PCM.CONSN ---
- General Info Date of Service: 01/01/20 Admission Dx/Problem (Free Text): Acute cholecystitis Subjective Update: Patient is having increasing abdominal pain particularly in the right upper quadrant. Additionally her white count is gone from 17,000 yesterday to over 19,000 today and she has become febrile. She reports the parenteral analgesics are not helping as much. Functional Status: Reports: New Symptoms (Increasing abdominal pain). Denies: Pain Controlled, Tolerating Diet Pain Score: 7 - Review of Systems General: Reports: Fever. Denies: Weakness, Fatigue, Malaise, Chills, Night Sweats, Appetite HEENT: Reports: No Symptoms Pulmonary: Denies: Shortness of Breath, Pleuritic Chest Pain, Cough Cardiovascular: Denies: Chest Pain Gastrointestinal: Reports: Abdominal Pain, Decreased Appetite. Denies: Nausea, Vomiting Genitourinary: Denies: Dysuria, Frequency, Burning, Pain, Urgency Musculoskeletal: Denies: Neck Pain, Shoulder Pain Skin: Denies: Cyanosis, Jaundice, Mottled, Pallor, Diaphoresis Neurological: Reports: No Symptoms Psychiatric: Reports: No Symptoms - Patient Data Vitals - Most Recent: Last Vital Signs Temp 99.3 F 01/01/20 03:35 Pulse 99 01/01/20 03:35 Resp 14 01/01/20 03:35 BP 177/85 H 01/01/20 03:35 Pulse Ox 94 L 01/01/20 03:35 Weight - Most Recent: 150 lb 6.4 oz I&O - Last 24 Hours: Intake & Output 12/31/19 01/01/20 01/01/20 19:59 03:59 11:59 Intake Total 100 3072 Output Total 1400 1200 Balance -1300 1872 Lab Results Last 24 Hours: Laboratory Results - last 24 hr 01/01/20 01/01/20 Range/Units 05:12 05:12 WBC 19.55 H (4.0-11.0) K/uL RBC 4.18 L (4.30-5.90) M/uL Hgb 12.2 (12.0-16.0) g/dL Hct 35.9 L (36.0-46.0) % MCV 85.9 (80.0-98.0) fL MCH 29.2 (27.0-32.0) pg MCHC 34.0 (31.0-37.0) g/dL RDW Std Deviation 37.5 (28.0-62.0) fl RDW Coeff of Alesha 12 (11.0-15.0) % Plt Count 190 (150-400) K/uL MPV 8.90 (7.40-12.00) fL Neut % (Auto) 89.9 H (48.0-80.0) % Lymph % (Auto) 3.6 L (16.0-40.0) % [place] % (Auto) 6.3 (0.0-15.0) % Eos % (Auto) 0.1 (0.0-7.0) % Baso % (Auto) 0.1 (0.0-1.5) % Neut # (Auto) 17.6 H (1.4-5.7) K/uL Lymph # (Auto) 0.7 (0.6-2.4) K/uL [place] # (Auto) 1.2 H (0.0-0.8) K/uL Eos # (Auto) 0.0 (0.0-0.7) K/uL Baso # (Auto) 0.0 (0.0-0.1) K/uL Sodium 136 (136-145) mmol/L Potassium 3.7 (3.5-5.1) mmol/L Chloride 103 (98-107) mmol/L Carbon Dioxide 26.6 (21.0-32.0) mmol/L BUN 8 (7.0-18.0) mg/dL Creatinine 0.8 (0.6-1.0) mg/dL Est Cr Clr Drug Dosing 62.63 mL/min Estimated GFR (MDRD) > 60.0 ml/min Glucose 119 H (74-106) mg/dL Calcium 8.2 L (8.5-10.1) mg/dL Total Bilirubin 1.6 H (0.2-1.0) mg/dL AST 45 H (15-37) IU/L ALT 59 (14-63) IU/L Alkaline Phosphatase 87 (46-116) U/L Total Protein 6.2 L (6.4-8.2) g/dL Albumin 3.0 L (3.4-5.0) g/dL Globulin 3.2 (2.6-4.0) g/dL Albumin/Globulin Ratio 0.9 (0.9-1.6) Med Orders - Current: Current Medications Acetaminophen (Tylenol) 650 mg PO Q4H PRN PRN Reason: Pain/Fever Last Admin: 12/31/19 20:20 Dose: 650 mg Documented by: Albuterol/Ipratropium (Duoneb 3.0-0.5 Mg/3 Ml) 3 ml NEB Q4HRRT PRN PRN Reason: Shortness of Breath Pantoprazole Sodium 40 mg/ (Sodium Chloride) 10 mls @ 300 mls/hr IV BID [facility] Last Admin: 01/01/20 08:29 Dose: 300 mls/hr Documented by: Piperacillin Sod/Tazobactam (Sod 4.5 gm/ Sodium Chloride) 100 mls @ 100 mls/hr IV Q6H [facility] Last Admin: 01/01/20 03:19 Dose: 100 mls/hr Documented by: Lactated Ringer's (Ringers, Lactated) 1,000 mls @ 125 mls/hr IV Q8H [facility] Last Admin: 01/01/20 08:28 Dose: 125 mls/hr Documented by: Ketorolac Tromethamine (Toradol) 15 mg IVPUSH Q6H PRN PRN Reason: Pain Last Admin: 01/01/20 03:20 Dose: 15 mg Documented by: Labetalol HCl (Normodyne) 10 mg IVPUSH Q4H PRN PRN Reason: Hypertension Morphine Sulfate/Sodium Chloride (Morphine-Ns 50 Mg/50 Ml) 0 mg IV ASDIRECTED [facility]; Protocol Last Admin: 12/31/19 23:10 Dose: 1 mg Documented by: Ondansetron HCl (Zofran) 4 mg IVPUSH Q4H PRN PRN Reason: Nausea/Vomiting Discontinued Medications Al Hydroxide/Mg Hydroxide 15 (ml/ Lidocaine HCl 5 ml) 0 ml PO ONETIME ONE Stop: 12/30/19 23:44 Last Admin: 12/31/19 00:11 Dose: 1 each Documented by: Dicyclomine HCl (Bentyl) 10 mg PO ONETIME ONE Stop: 12/31/19 00:33 Last Admin: 12/31/19 00:41 Dose: 10 mg Documented by: Hydromorphone HCl (Dilaudid) 0.5 mg IVPUSH Q3H PRN PRN Reason: Pain Hydromorphone HCl (Dilaudid) 1 mg IVPUSH Q3H PRN PRN Reason: Pain Last Admin: 12/31/19 13:58 Dose: 1 mg Documented by: Hydromorphone HCl (Dilaudid) 1 mg IVPUSH ONETIME ONE Stop: 12/31/19 14:42 Last Admin: 12/31/19 15:07 Dose: 1 mg Documented by: Sodium Chloride (Normal Saline) 1,000 mls @ 999 mls/hr IV .Bolus ONE Stop: 12/30/19 22:13 Last Admin: 12/30/19 21:44 Dose: 999 mls/hr Documented by: Lactated Ringer's (Ringers, Lactated) 1,000 mls @ 125 mls/hr IV ASDIRECTED [facility] Last Admin: 12/31/19 10:35 Dose: 125 mls/hr Documented by: Lactated Ringer's (Ringers, Lactated) 1,000 mls @ 125 mls/hr IV Q8H [facility] Last Admin: 01/01/20 03:53 Dose: Not Given Documented by: Lactated Ringer's (Ringers, Lactated) 1,000 mls @ 999 mls/hr IV ASDIRECTED ONE Stop: 12/31/19 21:09 Last Admin: 12/31/19 20:21 Dose: 999 mls/hr Documented by: Lactated Ringer's (Ringers, Lactated) 1,000 mls @ 999 mls/hr IV .BOLUS ONE Stop: 12/31/19 22:30 Last Admin: 12/31/19 22:27 Dose: 999 mls/hr Documented by: Ketorolac Tromethamine (Toradol) 15 mg IVPUSH ONETIME ONE Stop: 12/31/19 00:33 Last Admin: 12/31/19 00:41 Dose: 15 mg Documented by: Ketorolac Tromethamine (Toradol) 30 mg IVPUSH ONETIME ONE Stop: 12/31/19 14:50 Last Admin: 12/31/19 15:10 Dose: 30 mg Documented by: Metoclopramide HCl (Reglan) 10 mg IVPUSH ONETIME ONE Stop: 12/30/19 22:38 Last Admin: 12/30/19 22:54 Dose: 10 mg Documented by: Morphine Sulfate (Morphine) 4 mg IVPUSH ONETIME ONE Stop: 12/30/19 21:14 Last Admin: 12/30/19 21:44 Dose: 4 mg Documented by: Morphine Sulfate (Morphine) 4 mg IVPUSH ONETIME ONE Stop: 12/30/19 22:38 Last Admin: 12/30/19 22:54 Dose: 4 mg Documented by: Morphine Sulfate (Morphine) 4 mg IVPUSH ONETIME ONE Stop: 12/30/19 23:06 Last Admin: 12/30/19 23:20 Dose: 4 mg Documented by: Morphine Sulfate (Morphine) 30 mg .XX Q6H PRN PRN Reason: Pain Last Admin: 12/31/19 12:47 Dose: 30 mg Documented by: Morphine Sulfate (Morphine) 4 mg IVPUSH ONETIME ONE Stop: 12/31/19 15:14 Last Admin: 12/31/19 16:09 Dose: 4 mg Documented by: Ondansetron HCl (Zofran) 4 mg IVPUSH ONETIME ONE Stop: 12/30/19 21:14 Last Admin: 12/30/19 21:45 Dose: 4 mg Documented by: Ondansetron HCl (Zofran) 4 mg IVPUSH ONETIME ONE Stop: 12/30/19 23:06 Last Admin: 12/30/19 23:20 Dose: 4 mg Documented by: Sucralfate (Carafate) 1 gm PO ONETIME ONE Stop: 12/31/19 23:44 Last Admin: 12/31/19 00:42 Dose: 1 gm Documented by: Sucralfate (Carafate) Confirm Administered Dose 1 gm .ROUTE .STK-MED ONE Stop: 12/31/19 00:39 Last Admin: 12/31/19 00:42 Dose: Not Given Documented by: - Exam Quality Assessment: No: Supplemental Oxygen, Central Line/PICC, Urine Catheter General: Alert, Oriented, Cooperative, Moderate Distress HEENT: Pupils Equal, Pupils Reactive. No: Scleral Icterus Neck: Supple Lungs: Clear to Auscultation, Normal Respiratory Effort Cardiovascular: Regular Rate, Regular Rhythm GI/Abdominal Exam: Normal Bowel Sounds, No Distention, Guarding, Tender. No: Rigid, Rebound, Mass (Female) Exam: Deferred Back Exam: Normal Inspection Extremities: Normal Inspection, Normal Range of Motion Skin: Warm, Dry, Intact Neurological: No New Focal Deficit Psy/Mental Status: Alert, Normal Affect, Normal Mood Sepsis Event Note - Evaluation Sepsis Screening Result: Sepsis Risk - Focused Exam Vital Signs: Vital Signs Temp Pulse Resp BP Pulse Ox 01/01/20 03:35 99.3 F 99 14 177/85 H 94 L 12/31/19 23:59 97.8 F 85 12 162/74 H 95 12/31/19 21:20 98.4 F Date Exam was Performed: 01/01/20 Time Exam was Performed: 08:33 Consult PN Assessment/Plan Procedures: Procedures ASSAY OF AMYLASE (02/15/17) ASSAY OF LIPASE (02/15/17) ASSAY OF TROPONIN QUANT (02/15/17) CHEST X-RAY 1 VIEW FRONTAL (02/15/17) COMPLETE CBC W/AUTO DIFF WBC (02/15/17) COMPREHEN METABOLIC PANEL (02/15/17) ELECTROCARDIOGRAM TRACING (02/15/17) EMERGENCY DEPT VISIT (02/15/17) PROTHROMBIN TIME (02/15/17) URINALYSIS AUTO W/SCOPE (02/15/17) (1) Right upper quadrant abdominal pain SNOMED Code(s): 872199460 Code(s): R10.11 - RIGHT UPPER QUADRANT PAIN Current Visit: Yes (2) Biliary tract distention SNOMED Code(s): 036372530 Code(s): K83.8 - OTHER SPECIFIED DISEASES OF BILIARY TRACT Current Visit: Yes Comment: Her gallbladder is distended without signs of gallbladder wall thickening or pericholecystic edema or fluid. (3) Abdominal pain SNOMED Code(s): 27222655 Code(s): R10.9 - UNSPECIFIED ABDOMINAL PAIN Current Visit: Yes Qualifiers: Abdominal location: right upper quadrant Qualified Code(s): R10.11 - Right upper quadrant pain Problem List Initiated/Reviewed/Updated: Yes Plan: Patient appears to be developing progressive acute cholecystitis, possibly gangrenous cholecystitis. Given the significant increase in her white count in the last 48 hours along with tenderness and fever I think she would benefit from consideration for interventional radiologic placement of a cholecystostomy tube. At the present time I do not think a laparoscopic cholecystectomy may be possible and she might require an open cholecystectomy if the cholecystostomy tube cannot be done. I have discussed this with the patient and recommended that she consider transfer to [place] for interventional radiologic placement. She understands and agrees. I have also discussed this with her hospitalist team.
[2020-01-01] MEDS: Morphine Sulfate in 0.9 % NaCl 50 MG/50 ML PCA Bag IV SCH (08:45)
[2020-01-01] MEDS ORDERED: Morphine 4 MG/ML Syringe IVPUSH ONE (08:45)
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
[2020-01-01 09:26] VITALS: BP 186/92; PULSE 102
== END 2020-01-01 10:15 ==
LOC: MW.ED 20:47 → MW.MS 12-31 00:45
PROVIDERS: ADMIT Student in an Organized Health Care Education/Training Program; ATTEND Student in an Organized Health Care Education/Training Program
DX: K81.0 Acute cholecystitis (principal); K83.8 Other specified diseases of biliary tract; R51 Headache; G89.29 Other chronic pain; M54.5 Low back pain; J45.909 Unspecified asthma, uncomplicated; E03.9 Hypothyroidism, unspecified; F11.90 Opioid use, unspecified, uncomplicated; Z20.828 Contact with and (suspected) exposure to other viral communicable diseases; Z79.890 Hormone replacement therapy; Z79.899 Other long term (current) drug therapy; Z87.891 Personal history of nicotine dependence; Z88.1 Allergy status to other antibiotic agents; Z88.8 Allergy status to other drugs, medicaments and biological substances; Z87.828 Personal history of other (healed) physical injury and trauma
CPT/HCPCS: 36415; 74177; 76705; 80053; 81001; 83690; 83735; 84100; 84484; 85025; 87040; 87635; 93005; 96361; 96365; 96366; 96375; 96376; 99285; A9270; C9113; G0378; J1170; J1885; J2270; J2405; J2543; J2765; J3490; J7030; J7050; J7120; 96374; 99284; U0002